=== PATIENT | male | born 1935 | race Hispanic/Latino ===

== ENCOUNTER 2017-07-21 13:09 | Inpatient (IN) | payer MEDICARE ==
--- NOTE | 2017-07-21 14:03 | RAD ---
CHEST 1 VIEW: Date: 07/21/17 HISTORY: Altered mental status. Dyspnea. COMPARISON: 02/18/14. FINDINGS: Cardiac silhouette is magnified by projection. Pulmonary vasculature is unremarkable. Mild bibasilar atelectasis is stable. There is no lobar consolidation or evidence of pneumothorax. monitor tech l nicole overlie the chest. IMPRESSION: No active cardiopulmonary abnormalities are demonstrated. POS: [facility]
--- NOTE | 2017-07-21 14:37 | CT ---
CT HEAD NONCONTRAST DATE: 07/21/17 HISTORY: Altered mental status. FINDINGS: There is no evidence of acute intracranial hemorrhage or infarct. Diffuse cortical atrophy and chroni c ischemic small vessel disease are apparent. There is no mass effect or shift of midline structures. Visualized paranasal sinuses remain well aerated. IMPRESSION: No acute intracranial abnormalities are demonstrated on noncontrast CT head. POS: [facility]
[2017-07-21 14:58] LABS: #Eosinphils 0.4 thou/uL (0.0-0.7); #Lymphocytes 1.7 thou/uL (1.20-3.40); #Monocytes 0.5 thou/uL (0.11-0.59); #Neutrophils 2.7 thou/uL (1.40-6.50); %Basophils 0.5 % (0.0-1.0); %Eosinophils 7.3 % (0.0-10.0); %Lymphocytes 32.4 % (21.0-51.0); %Monocytes 8.9 % (0.0-10.0); %Neutrophils 50.9 % (42.0-75.0); Hemoglobin 10.8 g/dL (14.0-18.0); Mean Corpuscular HGB CONC 35.3 g/dL (32.0-36.0); Mean Corpuscular Hemoglobin 39.5 pg (27.0-31.0); RBC Distribution Width 11.7 % (11.5-14.5); Red Blood Cell (RBC) Count 2.72 mill/uL (4.70-6.10); White Blood Cell (WBC) Count 5.4 thou/uL (4.8-10.8)
[2017-07-21 15:09] LABS: ALT (SGPT) 12 U/L (8-55); AST (SGOT) 28 U/L (5-34); Albumin 3.3 g/dL (3.4-4.8); Alkaline Phosphatase 63 U/L (40-150); Anion Gap 12 mmol/L (10-20); BUN (Urea Nitrogen) 22 mg/dL (8.4-25.7); Bilirubin, Total 0.3 mg/dL (0.2-1.2); CK (CPK) 575 U/L (30-200); Calc. Creatinine Clearance 0 mL/min (70-130); Calcium 8.3 mg/dL (7.8-10.44); Carbon Dioxide 21 mmol/L (23-31); Chloride 106 mmol/L (98-107); Estimated GFR-MDRD 84; Glucose 99 mg/dL (83-110); Protein, Total 6.3 g/dL (5.8-8.1); Sodium 135 mmol/L (136-145)
[2017-07-21 15:14] LABS: CKMB 5.6 ng/mL (0-6.6); Troponin I Less than 0.010 ng/mL (< 0.028)
[2017-07-21 15:36] LABS: MDiff Complete? YES; Macrocytosis SLIGHT = 6-15 cells (100X) (0-5/hpf); Mean Platelet Volume 6.8 fL (7.4-10.4); PLT Morphology Comment Appears Decreased; Platelet Count 119 thou/uL (130-400)
[2017-07-21 16:52] LABS: Bilirubin Negative (Negative); Blood, Urine Negative (Negative); Clarity CLEAR (Clear); Glucose, Urine (Dipstick) Negative (Negative); Leukocyte Negative (Negative); Nitrite Negative (Negative); Protein, Urine (Dipstick) Negative (Neg-Trace); Specific Gravity, Urine 1.018 (1.002-1.036)
[2017-07-21] MEDS ORDERED: cefTRIAXone\\ROCEPHIN 2 GM VIAL ONE (18:43)
[2017-07-21] MEDS ORDERED: Sodium Chloride 0.9% 1,000 ML IV SCH (19:30)
[2017-07-21 19:31] LABS: Hemoglobin A1c 4.9 % (4.0-6.0)
--- NOTE | 2017-07-22 04:20 | HP ---
PRIMARY CARE PHYSICIAN: Albert Villaseñor. CHIEF COMPLAINT: Weakness, dizziness. HISTORY OF PRESENT ILLNESS: The patient is an 82-year-old male who presented to the hospital with sy mptoms of hypotension, generalized weakness, and decreased mental status. The patient was initially seen at [facility] and had some blood work and CT results done and was kept overnight for observ ation and was sent home the next day. The patient's family feels that he has been not himself recent ly and was found to have a systolic blood pressure in the 80s and a fever of 101. This is all per no surya, patient is unable to provide me any information and there is no family around. The patient curr ently denies any pain anywhere. Denies any fevers or chills. He is awake and alert only to self. P er records, the patient's recently . PAST MEDICAL HISTORY: History of hypothyroidism, chronic back pain, and dementia. PAST SURGICAL HISTORY: History of cholecystectomy and lung surgery for pneumonia, this is again per records. PSYCHIATRIC HISTORY: The patient has been at [facility] in 05/2017 after his for depressi on from Dr. Villaseñor, his PCP. SOCIAL HISTORY: Again, this is all from the records, unable to get anything from him. He lives with his family and no history of smoking, alcohol or drug use. ALLERGIES: He has no known allergies. CURRENT MEDICATIONS: He is on risperidone 0.25 mg daily, donepezil 10 mg daily, Depakote 125 daily, and Synthroid 50 mcg daily. PHYSICAL EXAMINATION: VITAL SIGNS: Temperature of 98.0, respirations 14, blood pressure 154/62, and saturating 98% on room air. GENERAL: He is awake, alert, and oriented to self. CARDIOVASCULAR: S1, S2 present. No murmurs, rubs or gallops. LUNGS: Clear to auscultation. No rhonchi, wheezes noted. ABDOMEN: Soft, nontender. Bowel sounds are present x2. NEUROLOGIC: He has got 5/5 bilateral upper extremities and bilateral lower extremities strength note d. LABORATORY DATA: Are as the following: WBC of 5.4, hemoglobin of 10.8, hematocrit of 30.5, platelet s of 119. Chemistry: Sodium of 135, potassium of 4.0, chloride of 106, BUN of 22, creatinine of 0.8 7. CK of 575. Troponin x1 is negative. BNP is 50.7. TSH is 3.11. The patient had a chest x-ray d one, which did not indicate any acute lung issues. Also had a CT brain, no acute intracranial abnorm alities. ASSESSMENT AND PLAN: The patient is an 82-year-old male who was brought into the hospital for severa l symptoms including weakness, fever, and hypotension. 1. Generalized weakness, unknown etiology. This could be due to his worsening dementia. I do not s ee anything in the labs that could be concerning for any acute abnormalities; however, urine also was checked which was negative. Chest x-ray did not indicate any acute process. We will continue to mo nitor the patient closely. 2. Possible fever; however, patient currently does not have a fever. We will continue to monitor. 3. History of dementia. We will continue his medications. 4. Deep venous thrombosis prophylaxis. We will put patient on subcu heparin. All studies are negat joaquin so far. We will continue to monitor the patient for 24 hours. If everything is negative, possib le discharge since there is really nothing medically necessary to admit this patient.
[2017-07-22] MEDS: Levothyroxine Sodium 50 MCG TAB PO SCH (05:22)
[2017-07-22 06:30] LABS: #Eosinphils 0.4 thou/uL (0.0-0.7); #Lymphocytes 2.1 thou/uL (1.20-3.40); #Monocytes 0.4 thou/uL (0.11-0.59); #Neutrophils 2.5 thou/uL (1.40-6.50); %Basophils 0.3 % (0.0-1.0); %Eosinophils 6.8 % (0.0-10.0); %Lymphocytes 38.9 % (21.0-51.0); %Monocytes 7.4 % (0.0-10.0); %Neutrophils 46.5 % (42.0-75.0); Hemoglobin 11.3 g/dL (14.0-18.0); Mean Corpuscular HGB CONC 35.5 g/dL (32.0-36.0); Mean Platelet Volume 6.5 fL (7.4-10.4); Platelet Count 116 thou/uL (130-400); RBC Distribution Width 11.5 % (11.5-14.5); Red Blood Cell (RBC) Count 2.89 mill/uL (4.70-6.10); White Blood Cell (WBC) Count 5.3 thou/uL (4.8-10.8)
[2017-07-22 06:46] LABS: Anion Gap 10 mmol/L (10-20); BUN (Urea Nitrogen) 16 mg/dL (8.4-25.7); Calc. Creatinine Clearance 77 mL/min (70-130); Calcium 8.4 mg/dL (7.8-10.44); Carbon Dioxide 24 mmol/L (23-31); Chloride 105 mmol/L (98-107); Estimated GFR-MDRD Greater than 90; Glucose 81 mg/dL (83-110); Potassium 4.1 mmol/L (3.5-5.1); Sodium 135 mmol/L (136-145)
[2017-07-22] MEDS ORDERED: risperiDONE 0.25 MG TAB PO SCH (09:00)
[2017-07-22] MEDS ORDERED: Donepezil HCl 10 MG TAB PO SCH (09:00)
[2017-07-22] MEDS: Heparin 5,000 UNITS/ML VIAL SC SCH ×3 (09:54→19:49)
[2017-07-22 12:03] VITALS: BMI 24.0
--- NOTE | 2017-07-22 17:17 | PDOC.PN ---
- Subjective Encounter Start Date: 07/22/17 Encounter Start Time: 11:50 -: non-verbal, old records requested/rev Pt seen and examined, chart reviewed in its entirety, this is my first visit with this patient Son at bedside, states pt started on a new medication and dose increased while at HS a week ago ans dince then pt has been increasingly weak ond somnolent. Pt has been on Risperdal for some time, but increased. Also on Namenda BID. givne AM dose today Very sleepy, hard to arounse, not communicative at present No F/C, no N/V/D/c, no CP or SOB. ROS not obtainable due to somnolence - Objective Resuscitation Status: Resuscitation Status FULL:Full Resuscitation MAR Reviewed: Yes Vital Signs & Weight: Vital Signs (12 hours) Temp Pulse Pulse Pulse Pulse Pulse Resp 07/22/17 16:05 97.6 F 54 L 17 07/22/17 13:25 50 L 57 L 65 54 L 07/22/17 11:24 98.1 F 53 L 17 07/22/17 08:00 97.7 F 52 L 16 07/22/17 07:49 97.7 F 52 L 16 BP BP BP BP BP Pulse Ox 07/22/17 16:05 150/56 H 96 07/22/17 13:25 131/62 159/70 H 154/71 H 145/68 H 07/22/17 11:24 116/56 L 95 07/22/17 08:00 07/22/17 07:49 137/60 97 Weight Admit Weight 172 lb Weight 172 lb 3.2 oz I&O: 07/21/17 07/22/17 07/23/17 06:59 06:59 06:59 Intake Total 800 Balance 800 Result Diagrams: 07/22/17 06:00 07/22/17 06:00 Radiology Reviewed by me: Yes EKG Reviewed by me: Yes Phys Exam - Physical Examination Constitutional: NAD HEENT: PERRLA, moist MMs, sclera anicteric, oral pharynx no lesions Neck: no nodes, no JVD, supple, full ROM Respiratory: no wheezing, no rales, no rhonchi, clear to auscultation bilateral Cardiovascular: RRR, no significant murmur, no rub tierney cardic. at 62 at tiem of visit, in 40s and 50s earlier Gastrointestinal: soft, non-tender, no distention, positive bowel sounds Musculoskeletal: no edema, pulses present Neurological: non-focal, normal sensation, moves all 4 limbs 3-4/5 strength Lymphatic: no nodes Psychiatric: normal affect, A&O x 3 Skin: no rash, normal turgor, cap refill <2 seconds Dx/Plan (1) Metabolic encephalopathy Code(s): G93.41 - METABOLIC ENCEPHALOPATHY Status: Acute Comment: hold namenda, risperdal (2) Fever Code(s): R50.9 - FEVER, UNSPECIFIED Status: Resolved Qualifiers: Fever type: unspecified Qualified Code(s): R50.9 - Fever, unspecified Comment: none here, resolved prior to admit (3) Dementia Code(s): F03.90 - UNSPECIFIED DEMENTIA WITHOUT BEHAVIORAL DISTURBANCE Status: Acute Qualifiers: Dementia type: unspecified type Dementia behavioral disturbance: with behavioral disturbance Qualified Code(s): F03.91 - Unspecified dementia with behavioral disturbance Comment: pt angray and combative after wifes 6 months ago. started on risperdal and namenda. will hold for now (4) Generalized weakness Code(s): R53.1 - WEAKNESS Status: Acute (5) Physical deconditioning Code(s): R53.81 - OTHER MALAISE Status: Acute (6) Hypotension Status: Resolved Qualifiers: Hypotension type: unspecified hypotension type Qualified Code(s): I95.9 - Hypotension, unspecified Comment: resolved, none here - Plan cont current plan of care, plan discussed w/ family, PT/OT, speech therapy, out of bed/ambulate * .
[2017-07-23 04:52] LABS: #Eosinphils 0.3 thou/uL (0.0-0.7); #Lymphocytes 2.2 thou/uL (1.20-3.40); #Monocytes 0.4 thou/uL (0.11-0.59); #Neutrophils 2.5 thou/uL (1.40-6.50); %Basophils 0.5 % (0.0-1.0); %Eosinophils 5.1 % (0.0-10.0); %Lymphocytes 40.5 % (21.0-51.0); %Monocytes 6.9 % (0.0-10.0); Hemoglobin 10.6 g/dL (14.0-18.0); Mean Corpuscular HGB CONC 35.5 g/dL (32.0-36.0); Mean Corpuscular Hemoglobin 39.3 pg (27.0-31.0); Mean Platelet Volume 7.2 fL (7.4-10.4); Platelet Count 105 thou/uL (130-400); RBC Distribution Width 11.6 % (11.5-14.5); White Blood Cell (WBC) Count 5.3 thou/uL (4.8-10.8)
[2017-07-23 05:01] LABS: Anion Gap 12 mmol/L (10-20); BUN (Urea Nitrogen) 17 mg/dL (8.4-25.7); Calc. Creatinine Clearance 75 mL/min (70-130); Carbon Dioxide 18 mmol/L (23-31); Chloride 108 mmol/L (98-107); Estimated GFR-MDRD 90; Glucose 78 mg/dL (83-110); Magnesium 1.7 mg/dL (1.6-2.6); Potassium 4.4 mmol/L (3.5-5.1); Sodium 134 mmol/L (136-145)
[2017-07-23] MEDS: Levothyroxine Sodium 50 MCG TAB PO SCH (06:03)
[2017-07-23] MEDS: Heparin 5,000 UNITS/ML VIAL SC SCH ×3 (09:44→20:22)
--- NOTE | 2017-07-23 15:54 | PDOC.PN ---
- Subjective Encounter Start Date: 07/23/17 Encounter Start Time: 10:20 Pt more awake and alert. walked 80ft with PT, fed himself. not belligerent, talking in his usual 2-3 workd phrases. Discussed iwth sons, case management, [facility]. No f/c, no n/V/d/C - Objective Resuscitation Status: Resuscitation Status FULL:Full Resuscitation MAR Reviewed: Yes Vital Signs & Weight: Vital Signs (12 hours) Temp Pulse Pulse Pulse Resp BP BP 07/23/17 15:45 98.1 F 50 L 16 119/57 L 07/23/17 11:16 98.1 F 57 L 16 115/59 L 07/23/17 11:12 53 L 49 L 118/63 07/23/17 08:00 98.8 F 52 L 17 141/66 H 07/23/17 04:00 98 F 55 L 18 Pulse Ox 07/23/17 15:45 97 07/23/17 11:16 96 07/23/17 11:12 07/23/17 08:00 94 L 07/23/17 04:00 95 Weight Admit Weight 172 lb Weight 167 lb I&O: 07/22/17 07/23/17 07/24/17 06:59 06:59 06:59 Intake Total 800 Balance 800 Result Diagrams: 07/23/17 04:23 07/23/17 04:23 EKG Reviewed by me: Yes Phys Exam - Physical Examination Constitutional: NAD HEENT: PERRLA, moist MMs, sclera anicteric, oral pharynx no lesions Neck: no nodes, no JVD, supple, full ROM Respiratory: no wheezing, no rales, no rhonchi, clear to auscultation bilateral Cardiovascular: RRR, no significant murmur, no rub Gastrointestinal: soft, non-tender, no distention, positive bowel sounds Musculoskeletal: no edema, pulses present Neurological: non-focal, normal sensation, moves all 4 limbs Lymphatic: no nodes Psychiatric: normal affect, A&O x 3 Skin: no rash, normal turgor, cap refill <2 seconds Dx/Plan (1) Metabolic encephalopathy Code(s): G93.41 - METABOLIC ENCEPHALOPATHY Status: Resolved Comment: hold aricept, risperdal,restart aricept at bedtime, possibl risperdal. i think his increased risperdal and aricept dosing resulted in a new metabolic encephalopathy, and his decreased activity led to deconditioning (2) Fever Code(s): R50.9 - FEVER, UNSPECIFIED Status: Resolved Qualifiers: Fever type: unspecified Qualified Code(s): R50.9 - Fever, unspecified Comment: none here, resolved prior to admit (3) Dementia Code(s): F03.90 - UNSPECIFIED DEMENTIA WITHOUT BEHAVIORAL DISTURBANCE Status: Acute Qualifiers: Dementia type: unspecified type Dementia behavioral disturbance: with behavioral disturbance Qualified Code(s): F03.91 - Unspecified dementia with behavioral disturbance Comment: pt angray and combative after wifes 6 months ago. started on risperdal and namenda. will hold for now (4) Generalized weakness Code(s): R53.1 - WEAKNESS Status: Acute (5) Physical deconditioning Code(s): R53.81 - OTHER MALAISE Status: Acute (6) Hypotension Status: Resolved Qualifiers: Hypotension type: unspecified hypotension type Qualified Code(s): I95.9 - Hypotension, unspecified Comment: resolved, none here - Plan cont current plan of care, plan discussed w/ family, PT/OT, out of bed/ambulate * .to [facility] if/when apporved. if denies, can look into SNF if he qualifies from last admit
[2017-07-23] MEDS ORDERED: Donepezil HCl 10 MG TAB PO SCH (21:00)
[2017-07-24] MEDS: Levothyroxine Sodium 50 MCG TAB PO SCH (06:15)
[2017-07-24] MEDS ORDERED: risperiDONE 1 MG TAB PO SCH (09:00)
[2017-07-24] MEDS ORDERED: Escitalopram Oxalate 10 mg Tablet PO SCH (09:45)
[2017-07-24] MEDS: Heparin 5,000 UNITS/ML VIAL SC SCH ×2 (09:45→16:10)
[2017-07-24 11:38] VITALS: TEMP 98
[2017-07-24 15:14] VITALS: BP 117/56
--- NOTE | 2017-07-24 15:59 | DIS ---
DATE OF ADMISSION: 07/21/2017 DATE OF DISCHARGE: 07/24/2017 ADMITTING PHYSICIAN: Dr. Montes De Oca DISCHARGING PHYSICIAN: Dr. Marcos Dahl PRIMARY CARE PHYSICIAN: Dr. Albert Villaseñor ADMITTING DIAGNOSES: 1. Generalized weakness. 2. Possible fever. 3. History of dementia. DISCHARGE DIAGNOSES: 1. Acute metabolic encephalopathy of unclear etiology. 2. Fever of unknown origin (resolved). 3. Hypotension (resolved). 4. Chronic hypothyroidism. 5. Chronic moderate to severe dementia. 6. Chronic pain syndrome. CONSULTS: None. PROCEDURES: None. SPECIAL IMAGING: Echocardiogram. HOSPITAL COURSE: In short, this is an 82-year-old male with history of moderate to severe dementia w ho was brought to the emergency department for generalized weakness and change in mentation. He had an elevated temperature that spontaneously resolved. Workup was essentially negative for any type of infection. We suspect potential polypharmacy related metabolic encephalopathy, but we could not pro ve it. With taper off some of his home medications and symptoms started to improve. He was evaluate d by physical therapy with recommendations for inpatient rehabilitation. [facility] and he will be discharged in stable condition. PHYSICAL EXAMINATION: VITAL SIGNS: Blood pressure 169/74, pulse 51, respirations 16, oxygen saturation 95% on room air, te mperature 98.4 Fahrenheit. GENERAL: He appears calm, but he is still disoriented. He recognizes family members in the room. H e is oriented in person and follows commands, although he is disoriented in time and place. He is in no acute distress. HEAD AND NECK: Pupils are reactive to light. Extraocular muscles are intact. Mucous members are mo ist. Neck is supple, with no JVD. CARDIOVASCULAR: Rhythm and rate are regular. No audible murmurs, rubs, gallops. Pulses are symmetr ic. PULMONARY: Clear to auscultation bilaterally. No wheezes, rhonchi, crackles. Chest expansion is sy mmetric. ABDOMEN: Soft, nontender, nondistended, positive bowel sounds. EXTREMITIES: No palpable edema. Range of motion is intact. SKIN: Generalized pallor. No breakdowns. NEUROLOGIC: Cranial nerves II-XII appear grossly intact. 4/5 strength especially in the lower extre mities. Oriented in person only and following commands. PSYCHIATRIC: Normal mood, but flat affect. LABORATORY ABNORMALITIES: Dated 07/23/2017; hemoglobin 10.6, hematocrit 30, platelets 105. DISCHARGE PLANNING: All questions have been answered and discussed with family members. Plan is to discharge to inpatient rehabilitation today in stable condition. Time of discharge and planning was 35 minutes.
[2017-07-25] MEDS ORDERED: Escitalopram Oxalate 10 mg Tablet PO SCH (09:00)
== END 2017-07-24 16:37 | DRG 72 ==
LOC: ERS 13:09 → 2NO 19:15
PROVIDERS: ADMIT Family Medicine; ATTEND Family Medicine
DX: G93.41 Metabolic encephalopathy (principal); I95.9 Hypotension, unspecified; F03.90 Unspecified dementia, unspecified severity, without behavioral disturbance, psychotic disturbance, mood disturbance, and anxiety; R50.9 Fever, unspecified; E03.9 Hypothyroidism, unspecified; G89.4 Chronic pain syndrome; R53.1 Weakness
CPT/HCPCS: 36415; 51701; 70450; 71045; 80048; 80053; 81003; 82274; 82533; 82553; 83036; 83735; 83880; 84443; 84484; 85025; 85379; 85652; 87040; 93306; 96365; G8978-GP-CK; G8979-GP-CI; G8987-GO-CJ; G8988-GO-CI; G8996-GN-CI; G8997-GN-CI; J0696; J1644